=== PATIENT | male | born 1955 | race Caucasian/White ===

== ENCOUNTER → 2017-03-15 | Outpatient (CLI) | payer BC ==
--- NOTE | 2017-03-16 08:33 | RAD ---
EXAM DESCRIPTION: Hand,Left 3 Views CLINICAL HISTORY: PAIN IN LEFT HAND COMPARISON: None Available. TECHNIQUE: AP, LATERAL, AND OBLIQUE FINDINGS: Three-view left hand shows no fracture or dislocation. Severe degenerative changes at the base of the thumb at the carpal metacarpal articulation is present with milder degenerative changes elsewhere. No foreign body is noted and no occult fractures are identified. IMPRESSION: 1. Advanced degenerative changes at the base of the thumb at the carpal metacarpal articulation with modest degenerative changes elsewhere within the hand. Electronically signed by: Og Jean Baptiste MD 03/16/2017 8:32 AM CDT
== END ==
LOC: RAD 07:28
PROVIDERS: ATTEND Orthopaedic Surgery
DX: M79.642 Pain in left hand (principal)

== ENCOUNTER → 2018-10-03 | Outpatient (CLI) | payer OTHER ==
--- NOTE | 2018-10-03 13:03 | RAD ---
EXAM DESCRIPTION: Hand,Right 3 Views CLINICAL HISTORY: 63 years Male, PAIN IN WRIST COMPARISON: Right hand radiographs 08/03/2016. TECHNIQUE: 3 views of the right hand. IMPRESSION: No acute displaced fracture. No dislocation or subluxation. There is mild degenerative change about the PIP and DIP joints but without significant osteophytosis and without erosion. There is also mild arthrosis about the first carpometacarpal joint. The visualized carpal and metacarpal bones maintain normal anatomic alignment. No radiographically apparent soft tissue abnormality. Electronically signed by: Eric Garcia MD 10/03/2018 1:02 PM [facility]
== END ==
LOC: RAD 08:10
PROVIDERS: ATTEND Orthopaedic Surgery
DX: M79.641 Pain in right hand (principal); M25.531 Pain in right wrist

== ENCOUNTER → 2019-02-26 | Outpatient (CLI) | payer OTHER ==
--- NOTE | 2019-02-27 07:37 | RAD ---
EXAM DESCRIPTION: Cervical Spine,3 Views CLINICAL HISTORY: 63 yearsMale, CERVICALGIA COMPARISON: None. IMPRESSION: ACDF hardware at C6-C7. C7 is partly obscured by the soft tissues of the upper thorax. Hardware appears in good alignment as visualized. Straightening of the normal cervical lordosis. Vertebral body stature is maintained. No acute fracture or destructive osseous lesion. Multilevel spondylitic changes with moderate disc narrowing at C4-C5 and C5-C6. Anterolateral disc bulging with osteophytes at these levels. More mild disc narrowing at C3-C4. No prevertebral soft tissue swelling. Surgical clips in the right neck soft tissues. Electronically signed by: Zac Quintero MD 02/27/2019 7:35 AM CDT
== END ==
LOC: RAD 09:25
PROVIDERS: ATTEND Nurse Practitioner Family
DX: M47.892 Other spondylosis, cervical region (principal); M50.021 Cervical disc disorder at C4-C5 level with myelopathy; M50.022 Cervical disc disorder at C5-C6 level with myelopathy